=== PATIENT | female | born 1955 | race Caucasian/White ===

== ENCOUNTER → 2016-09-26 | Outpatient (CLI) | payer OTHER ==
--- NOTE | 2016-09-27 08:57 | MM ---
Reason for exam: screening (asymptomatic). Last mammogram was performed 1 year and 1 month ago. History: Patient is postmenopausal. Family history of breast cancer in mother at age 70. Physical Findings: A clinical breast exam by your physician is recommended on an annual basis and results should be correlated with mammographic findings. MG Screening Mammo w CAD Bilateral CC and MLO view(s) were taken. Prior study comparison: September 11, 2015, bilateral MG screening mammo w CAD. December 04, 2012, bilateral digital screening mammo w/CAD. November 21, 2011, bilateral digital screening mammo w/CAD. There are scattered fibroglandular densities. Some of the nodularity previously seen in the left breast has resolved. There is some new 5mm and smaller nodularity in the upper outer quadrant right breast. A benign etiology is suspected. A 6 month follow up is recommended. ASSESSMENT: Probably benign, BI-RAD 3 RECOMMENDATION: Follow-up diagnostic mammogram of the right breast in 6 months.
== END | disposition home or self-care (01) ==
LOC: RADMAMWWP 13:37
PROVIDERS: ATTEND Family Medicine
DX: Z12.31 Encounter for screening mammogram for malignant neoplasm of breast (principal)

== ENCOUNTER 2016-12-27 09:15 | Day surgery (SDC) | payer OTHER ==
[2016-12-23 16:40] VITALS: BMI 27.4
[~2016-12-27 09:15] MED LIST: LACTATED RINGERS 1,000 ML IV SCH
[2016-12-27 10:32] VITALS: RESP 18; TEMP 98.1
[2016-12-27] MEDS ORDERED: LIDOCAINE 1% 20 ML VIAL (10MG/ML) FOR IV START INTRADERMA ONE (10:32)
[2016-12-27] MEDS ORDERED: PROPOFOL 10 MG/ML 20 ML VIAL IV ONE (11:02)
[2016-12-27] MEDS ORDERED: MIDAZOLAM 2 MG/2 ML VIAL ONE (11:02)
[2016-12-27] MEDS ORDERED: LIDOCAINE 1% INJ 10MG/ML (20 ML MDV) ONE (11:02)
[2016-12-27 11:44] VITALS: PULSE 65
--- NOTE | 2016-12-27 11:49 | P.PCN ---
Date of Procedure: 12/27/16 Procedure(s) Performed: Procedure: Total colonoscopy. Preoperative diagnosis: Screening for neoplasia, patient has history of polyps. Postoperative diagnosis: Sigmoid diverticulosis with no evidence of acute diverticulitis, strictures, polyps or cancer. Preparation: HalfLytely prep. Sedation: Was provided by anesthesia. Brief clinical history: The patient is 61-year-old female who is scheduled for this evaluation for screening for neoplasia, age being her risk factor as well as history of polyps. Her last exam was around 5 years ago. At this time, she has no abdominal complaints, bleeding or anemia. Procedure: With the patient on her left lateral decubitus position and after informed consent and adequate sedation, the perianal area was inspected and it did not show any fissures or fistulas. There were no masses felt on digital rectal examination. The Olympus CFQ 160L video colonoscope was then inserted in the rectum in the usual fashion and advanced to the cecum. There were few diverticular orifices seen scattered in the sigmoid with no evidence of acute diverticulitis or strictures. No polyps or tumors were seen. I retroflexed the endoscope in the rectum before the endoscope was withdrawn. The patient tolerated the procedure well. Plan: The patient was reassured. She will follow-up with you as planned and I recommended repeat exam in 5 years.
[2016-12-27 12:06] VITALS: BP 143/65
== END 2016-12-27 12:21 | disposition home or self-care (01) ==
LOC: ORWHC2ENDO 09:15
DX: Z12.11 Encounter for screening for malignant neoplasm of colon (principal); Z86.010 Personal history of colon polyps; K57.30 Diverticulosis of large intestine without perforation or abscess without bleeding; Z88.0 Allergy status to penicillin; Z88.2 Allergy status to sulfonamides; K21.9 Gastro-esophageal reflux disease without esophagitis; I10 Essential (primary) hypertension; E07.9 Disorder of thyroid, unspecified; Z79.899 Other long term (current) drug therapy
CPT/HCPCS: J2250; J2001; J2704; G0105

== ENCOUNTER → 2017-04-19 | Outpatient (CLI) | payer OTHER ==
--- NOTE | 2017-04-19 14:47 | MM ---
Reason for exam: follow-up at short interval from prior study. Last mammogram was performed 7 months ago. History: Patient is postmenopausal. Family history of breast cancer in mother at age 70. Physical Findings: Nurse did not find any significant physical abnormalities on exam. MG Diagnostic Mammo RT w CAD CC and MLO view(s) were taken of the right breast. Prior study comparison: September 26, 2016, bilateral MG screening mammo w CAD. September 11, 2015, bilateral MG screening mammo w CAD. There are scattered fibroglandular densities. There are oval circumscribed low density masses in the upper outer quadrant of the right breast at middle depth less conspicuous on today's exam. These results were verbally communicated with the patient and result sheet given to the patient on 04/19/17. ASSESSMENT: Probably benign, BI-RAD 3 RECOMMENDATION: Follow-up diagnostic mammogram of both breasts in 6 months.
== END | disposition home or self-care (01) ==
LOC: RADMAMWWP 12:44
PROVIDERS: ATTEND Family Medicine
DX: R92.8 Other abnormal and inconclusive findings on diagnostic imaging of breast (principal)
CPT/HCPCS: 77065

== ENCOUNTER → 2017-05-23 | Outpatient (CLI) | payer OTHER ==
[2017-05-23 11:06] LABS: HCT 38.8 % (34.0-46.0); HGB 11.4 gm/dL (11.4-16.0); Hypochromasia Marked; MCH 25.5 pg (25.0-35.0); MCHC 29.3 g/dL (31.0-37.0); Platelet Count 223 k/uL (150-450); RBC 4.46 m/uL (3.80-5.40); WBC 10.9 k/uL (3.8-10.6)
[2017-05-23 12:14] LABS: Basophils # (M) 0.11 k/uL (0-0.2); Eosinophils # (M) 0.11 k/uL (0-0.7); Monocytes # (M) 0.87 k/uL (0-1.0); Neutrophils # (M) 7.41 k/uL (1.3-7.7); Neutrophils % (M) 68 %; Nucleated Red Blood Cells 0 /100 WBC (0-0); Total Cells Counted 100
[2017-05-23 12:16] LABS: Anisocytosis (M) Present; Poikilocytosis (M) Present
== END | disposition home or self-care (01) ==
LOC: LABWHC1 10:32
PROVIDERS: ATTEND Family Medicine
DX: D72.819 Decreased white blood cell count, unspecified (principal)
CPT/HCPCS: 36415; 85027

== ENCOUNTER → 2017-10-09 | Outpatient (CLI) | payer OTHER ==
[2017-10-09 11:47] LABS: Anisocytosis Slight; HCT 40.1 % (34.0-46.0); MCH 27.4 pg (25.0-35.0); MCHC 32.3 g/dL (31.0-37.0); MCV 84.8 fL (80.0-100.0); Mean Platelet Volume 8.3; Platelet Count 218 k/uL (150-450); RBC 4.73 m/uL (3.80-5.40); RDW 16.5 % (11.5-15.5); WBC 14.3 k/uL (3.8-10.6)
[2017-10-09 12:03] LABS: ALT 45 U/L (9-52); AST 36 U/L (14-36); Albumin 4.2 g/dL (3.5-5.0); Alkaline Phosphatase 91 U/L (38-126); Anion Gap 12 mmol/L; Blood Urea Nitrogen 18 mg/dL (7-17); Carbon Dioxide 28 mmol/L (22-30); Chloride 102 mmol/L (98-107); Cholesterol 175 mg/dL (<200); Glucose 90 mg/dL (74-99); HDL Cholesterol 45 mg/dL (40-60); LDL Cholesterol,Calculated 56 mg/dL (0-99); Potassium 4.9 mmol/L (3.5-5.1); Sodium 142 mmol/L (137-145); Total Bilirubin 0.3 mg/dL (0.2-1.3); Total Protein 6.9 g/dL (6.3-8.2); Triglycerides 372 mg/dL (<150)
== END | disposition home or self-care (01) ==
LOC: LABWHC1 10:29
PROVIDERS: ATTEND Family Medicine
DX: D50.9 Iron deficiency anemia, unspecified (principal)
CPT/HCPCS: 36415; 80053; 80061; 82728; 84443; 84481; 85027

== ENCOUNTER → 2017-10-26 | Outpatient (CLI) | payer OTHER ==
--- NOTE | 2017-10-26 14:23 | MM ---
Reason for exam: follow-up at short interval from prior study. Last mammogram was performed 6 months ago. History: Patient is postmenopausal. Family history of breast cancer in mother at age 70. Physical Findings: Nurse did not find any significant physical abnormalities on exam. MG Diagnostic Mammo w CAD ARDEN Bilateral CC and MLO view(s) were taken. Prior study comparison: April 19, 2017, right breast MG diagnostic mammo RT w CAD. September 26, 2016, bilateral MG screening mammo w CAD. There are scattered fibroglandular densities. Benign calcifications. No discrete abnormality. No significant new findings when compared with previous films. These results were verbally communicated with the patient and result sheet given to the patient on 10/26/17. ASSESSMENT: Benign, BI-RAD 2 RECOMMENDATION: Routine screening mammogram of both breasts in 1 year.
== END | disposition home or self-care (01) ==
LOC: RADMAMWWP 13:22
PROVIDERS: ATTEND Family Medicine
DX: R92.8 Other abnormal and inconclusive findings on diagnostic imaging of breast (principal)
CPT/HCPCS: 77066

== ENCOUNTER → 2019-01-28 | Outpatient (CLI) | payer OTHER ==
--- NOTE | 2019-01-30 09:10 | MM ---
Reason for exam: screening (asymptomatic). Last mammogram was performed 4 months ago. History: Patient is postmenopausal. Family history of breast cancer in mother at age 70. Physical Findings: A clinical breast exam by your physician is recommended on an annual basis and results should be correlated with mammographic findings. MG Screening Mammo w CAD Bilateral CC and MLO view(s) were taken. Prior study comparison: September 20, 2018, left breast MG diagnostic mammo LT w CAD. October 26, 2017, bilateral MG diagnostic mammo w CAD ARDEN. There are scattered fibroglandular densities. There is chronic nodularity in the left breast. No significant changes when compared with prior studies. ASSESSMENT: Negative, BI-RAD 1 RECOMMENDATION: Routine screening mammogram of both breasts in 1 year.
== END | disposition home or self-care (01) ==
LOC: RADMAMWWP 12:56
PROVIDERS: ATTEND Family Medicine
DX: Z12.31 Encounter for screening mammogram for malignant neoplasm of breast (principal)
CPT/HCPCS: 77067

== ENCOUNTER → 2019-02-11 | Day surgery (SDC) | payer OTHER ==
[2019-02-07 10:14] VITALS: BMI 26.4
[~2019-02-11] MED LIST changes: +GLUCAGON 1 MG/ML VIAL ONE; +LIDOCAINE 1% 20 ML VIAL (10MG/ML) FOR IV START INTRADERMA PRN; +ONDANSETRON 4 MG/2 ML VIAL IVP ONE; +PROPOFOL 10 MG/ML 20 ML VIAL IV ONE; +SCOPOLAMINE 1.5MG/72HR PATCH TRANSDERM ONE
[2019-02-11 08:04] VITALS: RESP 16; TEMP 98.6
--- NOTE | 2019-02-11 08:40 | P.GSHP ---
History of Present Illness H&P Date: 02/11/19 Chief Complaint: History of colon polyps This is a 64-year-old female who presents today for colonoscopy. Patient has previous history of colon polyps. Her last colonoscopy was approximately 5 years ago. Past Medical History Past Medical History: GERD/Reflux, Hypertension, Thyroid Disorder Additional Past Medical History / Comment(s): vertigo, HX of polyps. History of Any Multi-Drug Resistant Organisms: None Reported Past Surgical History: Joint Replacement, Orthopedic Surgery Additional Past Surgical History / Comment(s): RIGHT ANKLE SX AND HARDWARE REMOVED. left TOTAL KNEE, left TOTAL HIP . Past Anesthesia/Blood Transfusion Reactions: Motion Sickness, Postoperative Nausea & Vomiting (PONV) Smoking Status: Never smoker - Past Family History Mother Family Medical History: Cancer Additional Family Medical History / Comment(s): BREAST CANCER Medications and Allergies Home Medications Medication Instructions Recorded Confirmed Type Aspirin 81 mg PO HS 05/19/14 02/07/19 History Ergocalciferol (Vitamin D2) 50,000 unit PO FR 12/23/16 02/07/19 History [Vitamin D2] Levothyroxine Sodium [Synthroid] 50 mcg PO HS 12/23/16 02/07/19 History Omeprazole [PriLOSEC] 20 mg PO BID 12/23/16 02/07/19 History Raloxifene [Evista] 60 mg PO HS 12/23/16 02/07/19 History Simvastatin [Zocor] 40 mg PO HS 12/23/16 02/07/19 History amLODIPine [Norvasc] 10 mg PO HS 02/07/19 02/07/19 History buPROPion HCL [Wellbutrin XL] 150 mg PO HS 02/07/19 02/07/19 History Allergies Allergy/AdvReac Type Severity Reaction Status Date / Time Sulfa (Sulfonamide Allergy Unknown Rash/Hives- Verified 02/11/19 07:52 Antibiotics) pt unsure if penicillin or sulfa allergy. Penicillins Allergy Rash/Hives Verified 02/11/19 07:52 Surgical - Exam Vital Signs Temp Pulse Resp BP Pulse Ox 98.6 F 88 16 141/65 97 02/11/19 07:59 02/11/19 07:59 02/11/19 07:59 02/11/19 07:59 02/11/19 07:59 - General no distress - Eyes PERRL - ENT normal pinna - Neck no masses - Respiratory normal expansion - Cardiovascular Rhythm: regular - Abdomen Abdomen: soft, non tender Assessment and Plan Assessment: History of colon polyps. We'll perform colonoscopy.
--- NOTE | 2019-02-11 09:06 | P.OP ---
Date of Procedure: 02/11/19 Preoperative Diagnosis: History of colon polyps Postoperative Diagnosis: Diverticulosis Colonoscopy completed to splenic flexure. Tortuous bowel Procedure(s) Performed: Colonoscopy Anesthesia: MAC Surgeon: Efren Licea Pathology: none sent Condition: stable Disposition: PACU Description of Procedure: The patient's placed on the endoscopy table in the lateral position. She received IV sedation. Digital rectal exam was performed which revealed no rales. The flexible colonoscope was then placed patient anus and passed throughout the colon. The scope could not pass beyond the splenic flexure secondary to tortuosity bowel. The colonoscope was then exchanged for a pediatric colonoscope and the colonoscope could not be advanced beyond the splenic flexure secondary to tortuosity. At this point scope was withdrawn. In the descending; there is extensive diverticular changes. There is known to any colon polyps. The scope was brought back the rectum and this appeared normal. Scope withdrawn for patient.
[2019-02-11 11:32] VITALS: BP 124/67; PULSE 84
--- NOTE | 2019-02-11 13:36 | FL ---
EXAMINATION TYPE: FL barium enema w air contrast DATE OF EXAM: 02/11/2019 COMPARISON: NONE HISTORY: Change in bowel habits. TECHNIQUE: Barium and air were instilled into the colon from the rectum to the cecum. Multiple spot and overhead images are obtained. Scattered retained fecal debris within the left hemicolon limits e valuation somewhat. FINDINGS: I do not see evidence for annular constricting lesion or fungating mass. No polypoid lesio ns are identified. Mucosal fold pattern has a normal appearance. No evidence for inflammatory bowel disease. Normal-appearing appendix which is retrocecal. Mild sigmoid diverticulosis. No evidence fo r diverticulitis. IMPRESSION: No significant abnormality identified at this time. Symptoms persist consider direct vis ualization.
== END ==
LOC: ORWHC2ENDO 07:35
PROVIDERS: ATTEND Surgery
DX: K57.30 Diverticulosis of large intestine without perforation or abscess without bleeding (principal); Q43.8 Other specified congenital malformations of intestine; Z86.010 Personal history of colon polyps; K21.9 Gastro-esophageal reflux disease without esophagitis; I10 Essential (primary) hypertension; E07.9 Disorder of thyroid, unspecified; E78.5 Hyperlipidemia, unspecified; Z86.69 Personal history of other diseases of the nervous system and sense organs; Z96.652 Presence of left artificial knee joint; Z96.642 Presence of left artificial hip joint; Z98.890 Other specified postprocedural states; Z87.898 Personal history of other specified conditions; Z79.82 Long term (current) use of aspirin; Z79.890 Hormone replacement therapy; Z79.899 Other long term (current) drug therapy; Z88.2 Allergy status to sulfonamides; Z88.0 Allergy status to penicillin; Z80.3 Family history of malignant neoplasm of breast
CPT/HCPCS: 74280; J1610; J2405; J2704; G0104; 45378

== ENCOUNTER → 2020-02-07 | Outpatient (CLI) | payer MEDICARE, OTHER ==
--- NOTE | 2020-02-10 12:05 | MM ---
Reason for exam: screening (asymptomatic). Last mammogram was performed 1 year ago. History: Patient is postmenopausal. Family history of breast cancer in mother at age 70. Physical Findings: A clinical breast exam by your physician is recommended on an annual basis and results should be correlated with mammographic findings. MG Screening Mammo w CAD Bilateral CC and MLO view(s) were taken. Prior study comparison: January 28, 2019, bilateral MG screening mammo w CAD. September 20, 2018, left breast MG diagnostic mammo LT w CAD. There are scattered fibroglandular densities. There are benign appearing round calcifications bilaterally. There is chronic nodularity bilaterally. There is no discrete abnormality. ASSESSMENT: Benign, BI-RAD 2 RECOMMENDATION: Routine screening mammogram of both breasts in 1 year.
== END | disposition home or self-care (01) ==
LOC: RADMAMWWP 12:29
PROVIDERS: ATTEND Family Medicine
DX: Z12.31 Encounter for screening mammogram for malignant neoplasm of breast (principal)
CPT/HCPCS: 77067

== ENCOUNTER 2021-01-22 05:50 | Day surgery (SDC) | payer MEDICARE, OTHER ==
[2021-01-19 08:47] VITALS: BMI 28.3
[~2021-01-22 05:50] MED LIST changes: -GLUCAGON 1 MG/ML VIAL ONE; -LACTATED RINGERS 1,000 ML IV SCH; -LIDOCAINE 1% 20 ML VIAL (10MG/ML) FOR IV START INTRADERMA PRN; -ONDANSETRON 4 MG/2 ML VIAL IVP ONE; -PROPOFOL 10 MG/ML 20 ML VIAL IV ONE; +Pre Op ABX Message 1 EACH MISC MISCELLANE ONE; -SCOPOLAMINE 1.5MG/72HR PATCH TRANSDERM ONE
[2021-01-22] MEDS ORDERED: ONDANSETRON 4 MG/2 ML VIAL IVP ONE ×2 (05:52→10:07)
[2021-01-22] MEDS ORDERED: MIDAZOLAM 2 MG/2 ML VIAL IV PRN (05:52)
[2021-01-22] MEDS ORDERED: HYDROmorphone 0.5 MG/0.5 ML SYRINGE IVP PRN (05:52)
[2021-01-22] MEDS ORDERED: DEXAMETHASONE SOD PHOSPHATE 4 MG/ML 1 ML VIAL IV ONE (05:52)
[2021-01-22] MEDS ORDERED: LACTATED RINGERS 1,000 ML IV SCH (05:52)
[2021-01-22] MEDS ORDERED: PROPOFOL 10 MG/ML 20 ML VIAL IV ONE (07:38)
[2021-01-22] MEDS ORDERED: KETAMINE 10 MG/ML 20 ML VIAL ONE (07:38)
[2021-01-22] MEDS ORDERED: LIDOCAINE 1% INJ 10MG/ML (20 ML MDV) ONE (07:38)
[2021-01-22] MEDS ORDERED: MIDAZOLAM 2 MG/2 ML VIAL ONE (07:38)
[2021-01-22] MEDS ORDERED: fentaNYL (PF) 50 MCG/ML 2 ML AMP ONE (07:38)
[2021-01-22] MEDS ORDERED: SUCCINYLCHOLINE CHLORIDE 100 MG/5 ML SYR IV ONE (07:38)
[2021-01-22] MEDS ORDERED: SODIUM CHLORIDE 0.9% 100 ML with CLINDAMYCIN 600 MG IV ONE ×2 (07:59)
[2021-01-22] MEDS ORDERED: BUPIVACAINE (PF) 0.5% 30 ML VIAL SQ ONE (08:00)
[2021-01-22 09:28] VITALS: RESP 16; TEMP 98.1
--- NOTE | 2021-01-22 09:43 | P.OP ---
Date of Procedure: 01/22/21 Preoperative Diagnosis: Hallux valgus left foot Postoperative Diagnosis: Same Procedure(s) Performed: Modified Lapidus bunionectomy left foot Implants: Lapiplasty system plates and screws Anesthesia: SAHIL Surgeon: Jonah Campbell Estimated Blood Loss (ml): 5 Pathology: none sent Condition: stable Disposition: PACU Indications for Procedure: Painful hallux valgus deformity nonresponsive to conservative treatment Description of Procedure: The patient was brought into the operating room and placed on table supine position. Timeout was taken to confirm correct patient identifiers, correct procedure, and correct site of surgery. On all staff in the room were in agreement, the patient was induced and placed under general anesthesia. A well- padded tourniquet was placed on the left ankle. 20 mL of 0.25% Marcaine was injected as a left ankle block. Then the left leg was prepped and draped in usual manner. The leg was exsanguinated with a Esmarch bandage and the tourniquet inflated to 250 mmHg. Attention was first directed over the medial aspect of the first metatarsal phalangeal joint. A linear incision was made between the neurovascular structures and deepened down through the subcutaneous layer careful to identify, avoid, and retract any neurovascular structures and cauterize any bleeding vessels. Dissection was continued down to the joint capsule. 2 semi-elliptical converging incisions were made on the medial aspect of the capsule. The interposing piece of tissue was removed which would facilitate sesamoid correction upon closure. The capsule was then reflected off the medial aspect of the first metatarsal head. The sesamoid apparatus was distracted plantarly and a lateral release completed. Then attention was directed over the dorsal aspect of the foot where an incision was made over the first tarsometatarsal joint and medial to the extensor hallucis longus tendon. The incision was deepened down to the subcutaneous tissue careful to identify, avoid, and retract any neurovascular structures and cauterize any bleeding vessels. The capsule was then incised medial to the extensor hallucis longus tendon and then subperiosteal dissection was performed to expose the first tarsometatarsal joint. An osteotome was inserted to free any soft tissue attachments. A pin was then placed on the medial aspect of the base of the first metatarsal which was used to rotate the first metatarsal for frontal plane correction. There was adequate enough motion that planing the joint with the saw blade was not necessary. The fulcrum/joint seeker was inserted into the first tarsometatarsal joint with a fulcrum oriented laterally at the base of the first metatarsal. The cut guide was placed over the seeker and then was utilized as a reference point to make a small incision approximately 3-4 mm distal to the tip of the cut guide on the lateral aspect of the second metatarsal. The incision was made and bluntly dissected down the lateral side of second metatarsal. The reduction clamp was then placed through the incision on the lateral side of second metatarsal and the other portion on the medial aspect of the base of the first metatarsal this is then closed to reduce the intermetatarsal angle while simultaneously holding the first metatarsal derotated utilizing the previously inserted pin. Once adequate correction was achieved which was confirmed under fluoroscopy a pin was placed through the reduction clamp through the first metatarsal into the second metatarsal to maintain the position. The cut guide was aligned under fluoroscopy and then pins placed in the cut guide to hold it in place. Was also confirmed that the cut guide was lying flat on the bony surfaces. A sagittal saw was then inserted into the cut guide and the articular surfaces of the base of the first metatarsal distal medial cuneiform were cut utilizing the sagittal saw. The locking pin holding the cut guide was removed and then the cut guide was slid off the remaining 2 pins. Then the distractor/compressor was placed over the pins. The wire through the reduction clamp was removed as was the reduction clamp and joint seeker. Then the arthrodesis site was distracted and then the cut bony fragments were removed. Once all fragments were removed the area was thoroughly irrigated with saline. And then a 20 drill bit was utilized to fenestrate the conjoining surfaces of the arthrodesis. A smaller fulcrum was then placed on the lateral aspect of the base of the first metatarsal and then the arthrodesis site was compressed while holding the first MPJ dorsiflexed. Once decompression was completed fluoroscopy was used to check the overall alignment as well as the bony contact. Both on AP and lateral views there was good bony contact throughout with no plantar gapping in the intermetatarsal angle correction was maintained. A threaded olive wire was then placed across the arthrodesis site for fixation. The first plate was placed medially across the arthrodesis site. It was adjusted under fluoroscopy and then temporarily fixated in place. The 2 screws closest to the arthrodesis site were inserted through the plate first and then the for this proximal distal were second. Then the distractor/compressor was removed as well as the pins it was attached to. The dorsal plate was then aligned under fluoroscopy and temporarily fixated. Once alignment was adequate the drill holes closest to the arthrodesis site were made and then screws inserted through the plate. And then the most distal and proximal screws were inserted. The fulcrum was removed as was the threaded olive wire and then final fluoroscopic imaging showed complete correction of the intermetatarsal angle with maintained bony contact. A sagittal saw was then used to resect excessive growth on the medial aspect of the first metatarsal head and all the roughened edges were then smoothed. All wounds were thoroughly irrigated with normal saline. Capsular closure of the first MPJ was done with 0 Vicryl while holding the great toenail correct position. Deep closure was also done with 0 Vicryl in the proximal incision. Subcutaneous closure of all incisions was done with 4-0 Monocryl. Skin closure on the medial and dorsal incisions were completed wtih 4-0 Stratafix in a running subcuticular manner. Dermal glue was applied over all the incisions and then covered Steri-Strips. An Arthrex jumpstart dressing was applied over the incisions and then a dry dressing applied to left foot. The tourniquet was released and capillary refill return to all digits on the left foot. The patient was then placed in a well-padded well molded plaster posterior mold/sugar tong splint. Splint was held at 90 while drying. Anesthesia was reversed and the patient was taken recovery with vital signs stable.
[2021-01-22] MEDS ORDERED: ONDANSETRON 4 MG/2 ML VIAL ONE (10:06)
[2021-01-22] MEDS ORDERED: LACTATED RINGERS 1,000 ML IV ONE (10:22)
[2021-01-22 10:55] VITALS: PULSE 94
[2021-01-22 11:09] VITALS: BP 130/77
== END 2021-01-22 11:34 | disposition home or self-care (01) ==
LOC: OR 05:50
PROVIDERS: ATTEND Podiatrist
DX: M20.12 Hallux valgus (acquired), left foot (principal)
CPT/HCPCS: 28297; 20680; 11730; C1713; J2250; J1100; J2405; J2001; J3010; J0330; J2704

== ENCOUNTER → 2021-05-20 | Outpatient (CLI) | payer MEDICARE, OTHER ==
--- NOTE | 2021-05-21 13:32 | MM ---
Reason for exam: screening (asymptomatic). Last mammogram was performed 1 year and 3 months ago. History: Patient is postmenopausal. Family history of breast cancer in mother at age 70. Physical Findings: A clinical breast exam by your physician is recommended on an annual basis and results should be correlated with mammographic findings. MG Screening Mammo w CAD Bilateral CC and MLO view(s) were taken. Prior study comparison: February 07, 2020, bilateral MG screening mammo w CAD. January 28, 2019, bilateral MG screening mammo w CAD. There are scattered fibroglandular densities. There is no discrete abnormality. No significant changes when compared with prior studies. ASSESSMENT: Negative, BI-RAD 1 RECOMMENDATION: Routine screening mammogram of both breasts in 1 year.
== END | disposition home or self-care (01) ==
LOC: RADMAMWWP 13:53
PROVIDERS: ATTEND Family Medicine
DX: Z12.31 Encounter for screening mammogram for malignant neoplasm of breast (principal); Z78.0 Asymptomatic menopausal state; Z80.3 Family history of malignant neoplasm of breast
CPT/HCPCS: 77067

== ENCOUNTER → 2022-03-18 | Outpatient (CLI) | payer MEDICARE, OTHER ==
--- NOTE | 2022-03-18 10:06 | FL ---
EXAMINATION TYPE: FL barium swallow DATE OF EXAM: 03/18/2022 CLINICAL HISTORY: Dysphagia. Some choking episodes. No relief with Prilosec. TECHNIQUE: A double contrast esophagram is performed utilizing air and barium. A total of 39 second s of fluoroscopic time was utilized during procedure and 68 images obtained COMPARISON: None FINDINGS: The esophagus shows some underlying dysmotility with moderate dilatation of the distal esop hagus. No proximal diverticulum. No aspiration during real-time performance. There is small to modera te size sliding-type hiatal hernia. There is focal [id number] narrowing at level of the diaphra gmatic hiatus. No significant gastroesophageal reflux was seen during real time performance of this s tudy. IMPRESSION: Small to moderate-sized sliding-type hiatal hernia. Mild esophageal dysmotility. Focal na rrowing at the diaphragmatic hiatus causing distal esophageal dilatation.
== END | disposition home or self-care (01) ==
LOC: RADUSWWP 08:40
PROVIDERS: ATTEND Family Medicine
DX: K44.9 Diaphragmatic hernia without obstruction or gangrene (principal); K22.4 Dyskinesia of esophagus; K22.89 Other specified disease of esophagus
CPT/HCPCS: 74220

== ENCOUNTER → 2022-06-29 | Outpatient (CLI) | payer MEDICARE, OTHER ==
--- NOTE | 2022-06-30 10:38 | MM ---
Reason for Exam: Screening (asymptomatic). Last mammogram was performed 1 year(s) and 1 month(s) ago. Patient History: Menarche at age 13. First Full-Term at age 26. Postmenopausal. Mother had breast cancer, age 70. Risk Values: Marian 5 year model risk: 3.3%. Prior Study Comparison: 01/28/2019 Bilateral Screening Mammogram, [facility]. 02/07/2020 Bilateral Screening Mammogram, [facility]. 05/20/2021 Bilateral Screening Mammogram, [facility]. Tissue Density: The breast tissue is almost entirely fat. Findings: Analyzed By CAD. Benign spherical calcifications are present bilaterally. Chronic nodularity is within the left breast. No significant interval changes are evident. No suspicious groups of microcalcifications, spiculated or lobular masses, architectural distortion or other secondary signs of malignancy are mammographically apparent. Overall Assessment: Benign, BI-RAD 2 Management: Screening Mammogram of both breasts in 1 year. A negative mammogram report should not preclude additional follow up of suspicious palpable abnormalities. Patient should continue monthly self breast exam. A clinical breast exam by your physician is recommended on an annual basis and results should be correlated with mammographic findings. Electronically signed and approved by: Twin Braun D.O. Radiologis
== END | disposition home or self-care (01) ==
LOC: RADMAMWWP 14:53
PROVIDERS: ATTEND Family Medicine
DX: Z12.31 Encounter for screening mammogram for malignant neoplasm of breast (principal); Z78.0 Asymptomatic menopausal state; Z80.3 Family history of malignant neoplasm of breast
CPT/HCPCS: 77067

== ENCOUNTER → 2023-06-15 | Outpatient (CLI) | payer MEDICARE, OTHER ==
[2023-06-15 18:06] LABS: HCT 37.7 % (37.2-46.3); HGB 11.6 g/dL (12.0-15.0); MCHC 30.8 g/dL (32.0-37.0); MCV 87.9 FL (80.0-97.0); Mean Platelet Volume 12.4 FL (9.5-12.2); NRBC Per 100 WBC 0 X 10*3/uL (0.00-0.01); Platelet Count 286 X 10*3/uL (140-440); RBC 4.29 X 10*6/uL (4.10-5.20); RDW 15.3 % (11.5-14.5); WBC 10.04 X 10*3/uL (4.50-10.00)
[2023-06-15 20:58] LABS: T4, Free (Free Thyroxine) 1.23 ng/dL (0.80-1.80)
[2023-06-15 21:22] LABS: Chol/HDL Ratio 7.88 Ratio
[2023-06-15 21:27] LABS: ALT 24 U/L (8-44); AST 31 U/L (13-35); Albumin 4.6 g/dL (3.8-4.9); Albumin/Globulin Ratio 1.53 Ratio (1.60-3.17); Alkaline Phosphatase 109 U/L (41-126); BUN/Creat Ratio 46.57 Ratio (12.00-20.00); Blood Urea Nitrogen 32.6 mg/dL (9.0-27.0); Calcium 9.3 mg/dL (8.7-10.3); Carbon Dioxide 22.7 mmol/L (21.6-31.8); Chloride 98 mmol/L (96-109); Glucose 111 mg/dL (70-110); Potassium 4.8 mmol/L (3.5-5.5); Sodium 137 mmol/L (135-145); Total Bilirubin <0.2 mg/dL (0.3-1.2); Total Protein 7.6 g/dL (6.2-8.2)
== END | disposition home or self-care (01) ==
LOC: LABWHC1 12:48
PROVIDERS: ATTEND Family Medicine
DX: E03.9 Hypothyroidism, unspecified (principal); F33.1 Major depressive disorder, recurrent, moderate; R73.03 Prediabetes
CPT/HCPCS: 36415; 80053; 80061; 83721; 84439; 84443; 84480; 85027

== ENCOUNTER → 2023-06-26 | Outpatient (CLI) | payer MEDICARE, OTHER ==
--- NOTE | 2023-06-30 09:26 | MM ---
Reason for Exam: Screening (asymptomatic). Last screening mammogram was performed 12 month(s) ago. Patient History: Menarche at age 13. First Full-Term at age 26. Postmenopausal. Estrogen for 10 years from age 40 until age 50. Mother had breast cancer, age 70. Risk Values: Marian 5 year model risk: 3.4%. NCI Lifetime model risk: 10.7%. Prior Study Comparison: 02/07/2020 Bilateral Screening Mammogram, [facility]. 05/20/2021 Bilateral Screening Mammogram, [facility]. 06/29/2022 Bilateral MG screening mammo w CAD, [facility]. Tissue Density: There are scattered areas of fibroglandular density. Findings: Analyzed By CAD. There is no suspicious group of microcalcifications or new suspicious mass in either breast. Benign-appearing calcifications. Stable well-circumscribed 2 mm bilateral chronic nodularity. Overall Assessment: Benign, BI-RAD 2 Management: Screening Mammogram of both breasts in 1 year. . Patient should continue monthly self-breast exams. A clinical breast exam by your physician is recommended on an annual basis. This exam should not preclude additional follow-up of suspicious palpable abnormalities. Note on Marian scores and lifetime risk: 1. A Marian score greater than 3% is considered moderate risk. If this is the case, consider specialist referral to assess eligibility for a risk reducing agent. 2. If overall lifetime risk for the development of breast cancer is 20% or higher, the patient may qualify for future screening with alternating mammogram and breast MRI. Electronically signed and approved by: Fredo Holland M.D. Radiologis
== END | disposition home or self-care (01) ==
LOC: RADMAMWWP 13:51
PROVIDERS: ATTEND Family Medicine
DX: Z12.31 Encounter for screening mammogram for malignant neoplasm of breast (principal); Z78.0 Asymptomatic menopausal state; Z80.3 Family history of malignant neoplasm of breast
CPT/HCPCS: 77067

== ENCOUNTER → 2024-04-15 | Day surgery (SDC) | payer MEDICARE, OTHER ==
[~2024-04-15] MED LIST changes: +LACTATED RINGERS 1,000 ML IV SCH; +LIDOCAINE 1% (10MG/ML) FOR IV START INTRADERMA PRN; +PROPOFOL 10 MG/ML 20 ML VIAL IV ONE; -Pre Op ABX Message 1 EACH MISC MISCELLANE ONE
[2024-04-15 12:57] VITALS: TEMP 98.5
[2024-04-15] MEDS: SODIUM CHLORIDE 0.9% 1,000 ML IV ONE (13:01)
--- NOTE | 2024-04-15 13:44 | P.GSHP ---
History of Present Illness H&P Date: 04/15/24 Chief Complaint: Screening colonoscopy This a 69-year-old female who presents today for screening colonoscopy. Patient denies any significant GI complaints. Past Medical History Past Medical History: GERD/Reflux, Hypertension, Thyroid Disorder Additional Past Medical History / Comment(s): vertigo, hypothyroid, HX of polyps. osteoperosis, History of Any Multi-Drug Resistant Organisms: None Reported Past Surgical History: Joint Replacement, Orthopedic Surgery Additional Past Surgical History / Comment(s): RIGHT ANKLE SURGERY AND HARDWARE REMOVED., TOTAL KNEE, TOTAL HIP fx femur,. Past Anesthesia/Blood Transfusion Reactions: Motion Sickness, Postoperative Nausea & Vomiting (PONV) Smoking Status: Former smoker - Past Family History Mother Family Medical History: Cancer Additional Family Medical History / Comment(s): BREAST CANCER Medications and Allergies Home Medications Medication Instructions Recorded Confirmed Type Aspirin 81 mg PO HS 05/19/14 04/15/24 History Ergocalciferol (Vitamin D2) 50,000 unit PO 12/23/16 04/15/24 History [Vitamin D2] Levothyroxine Sodium [Synthroid] 50 mcg PO HS 12/23/16 04/15/24 History Omeprazole [PriLOSEC] 20 mg PO HS 12/23/16 04/15/24 History Raloxifene [Evista] 60 mg PO HS 12/23/16 04/15/24 History Simvastatin [Zocor] 40 mg PO HS 12/23/16 04/15/24 History amLODIPine [Norvasc] 10 mg PO HS 02/07/19 04/15/24 History Loratadine [Claritin] 10 mg PO DAILY 01/19/21 04/15/24 History Teriparatide [Forteo] 1 injection INJ DIRECTED 04/09/24 04/15/24 History Allergies Allergy/AdvReac Type Severity Reaction Status Date / Time Sulfa (Sulfonamide Allergy Unknown Rash/Hives- Verified 04/15/24 12:46 Antibiotics) pt unsure if penicillin or sulfa allergy. Penicillins Allergy Rash/Hives Verified 04/15/24 12:46 acetaminophen [From Vicodin] AdvReac Nausea & Verified 04/15/24 12:46 Vomiting hydrocodone [From Vicodin] AdvReac Nausea & Verified 04/15/24 12:46 Vomiting Surgical - Exam Vital Signs Temp Pulse Resp BP Pulse Ox 98.5 F 102 H 16 164/70 94 L 04/15/24 12:50 04/15/24 12:50 04/15/24 12:50 04/15/24 12:50 04/15/24 12:50 - General well developed, well nourished, no distress - Eyes PERRL - ENT normal pinna - Neck no masses - Respiratory normal expansion - Cardiovascular Rhythm: regular - Abdomen Abdomen: soft, non tender Assessment and Plan Assessment: Will perform screening colonoscopy.
--- NOTE | 2024-04-15 14:07 | P.OP ---
Date of Procedure: 04/15/24 Preoperative Diagnosis: Screening colonoscopy Postoperative Diagnosis: diverticulosis Procedure(s) Performed: Colonoscopy Anesthesia: MAC Surgeon: Efren Licea Pathology: none sent Condition: stable Disposition: PACU Description of Procedure: Patient was placed on the endoscopy table in the lateral position. She received IV sedation. Digital rectal exams performed. This revealed no abnormalities. Close colonoscope was then placed patient anus and passed throughout the colon. The scope could not be advanced through the sigmoid colon at this point scope was withdrawn. And then the pediatric scope was placed. The PA scope was placed patient anus passed throughout the colon. At this point the scope was able to get past the sigmoid colon into the left colon however it could not be advanced secondary tortuosity the bowel. This point scope withdrawn. There is extensive diverticular changes seen in the sigmoid colon. Scope was brought back to the rectum this appeared normal. Scope withdrawn for the patient. Patient was scheduled for a barium enema.
[2024-04-15 14:39] VITALS: BP 131/77; PULSE 89; RESP 20
--- NOTE | 2024-04-16 08:33 | FL ---
EXAMINATION TYPE: FL barium enema DATE OF EXAM: 04/15/2024 COMPARISON: Prior barium enema February 11, 2019 CLINICAL INDICATION: Female, 69 years old with history of Incomplete colonoscopy, no biopsies perform ed; [facility], TECHNIQUE: A double contrast barium enema study is performed. A total of 1 minute 50 seconds of flu oroscopic time was utilized during procedure and 12 images obtained. Total dose area product (DAP) i n uGy*m?, mGy*cm? (or similar): n/a. 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 Metallic hardwa re from left hip surgery is redemonstrated. Exam is noted suboptimal as patient had poor tolerance of contrast and significant pain along with li mited motion for ideal evaluation particularly for nodules. Contrast extends to level of cecum but ce cum is incompletely opacified. No evidence of any large mass, obstructing or constricting lesion thro ughout the colon. No significant diverticular disease is noted. Appendix was not filled. The terminal ileum was not refluxed. IMPRESSION: Suboptimal study without obstructing or constricting mass or neoplasm. [facility], , 04/16/2024 8:31 AM
== END | disposition home or self-care (01) ==
LOC: ORWHC2ENDO 12:25
PROVIDERS: ATTEND Surgery
DX: Z12.11 Encounter for screening for malignant neoplasm of colon (principal); K57.30 Diverticulosis of large intestine without perforation or abscess without bleeding; K63.89 Other specified diseases of intestine; Z86.0100 Personal history of colon polyps, unspecified; K21.9 Gastro-esophageal reflux disease without esophagitis; I10 Essential (primary) hypertension; E03.9 Hypothyroidism, unspecified; M81.0 Age-related osteoporosis without current pathological fracture; R42 Dizziness and giddiness; Z87.891 Personal history of nicotine dependence; Z98.890 Other specified postprocedural states; Z79.899 Other long term (current) drug therapy; Z79.890 Hormone replacement therapy; Z88.0 Allergy status to penicillin; Z88.2 Allergy status to sulfonamides; Z88.5 Allergy status to narcotic agent; Z88.6 Allergy status to analgesic agent
CPT/HCPCS: 74270; J2704; G0121

== ENCOUNTER → 2024-08-05 | Outpatient (CLI) | payer MEDICARE, OTHER ==
--- NOTE | 2024-08-05 12:03 | MM ---
Reason for Exam: Screening (asymptomatic). Last mammogram was performed 1 year(s) and 2 month(s) ago. Patient History: Menarche at age 13. First Full-Term at age 26. Postmenopausal. Estrogen for 10 years from age 40 until age 50. Mother had breast cancer, age 70. Risk Values: Marian 5 year model risk: 3.4%. NCI Lifetime model risk: 10.2%. Prior Study Comparison: 05/20/2021 Bilateral Screening Mammogram, [facility]. 06/29/2022 Bilateral MG screening mammo w CAD, [facility]. 06/26/2023 Bilateral MG screening mammo w CAD, [facility]. Tissue Density: The breasts are almost entirely fatty. Findings: Analyzed By CAD. Right breast: There is no suspicious group of microcalcifications or new suspicious mass. Benign-appearing calcifications right breast. Left breast: There is no suspicious group of microcalcifications or new suspicious mass. Benign-appearing calcifications left breast. Overall Assessment: Benign, BI-RAD 2 Management: Screening Mammogram of both breasts in [address] [facility] will attempt to contact patient to return for supplemental views and ultrasound if indicated. Patient should continue monthly self-breast exams. A clinical breast exam by your physician is recommended on an annual basis. This exam should not preclude additional follow-up of suspicious palpable abnormalities. Note on Marian scores and lifetime risk: 1. A Marian score greater than 3% is considered moderate risk. If this is the case, consider specialist referral to assess eligibility for a risk reducing agent. 2. If overall lifetime risk for the development of breast cancer is 20% or higher, the patient may qualify for future screening with alternating mammogram and breast MRI. [facility], , 08/05/2024 11:59 AM. Electronically signed and approved by: Dread Bray DO
== END | disposition home or self-care (01) ==
LOC: RADMAMWWP 10:46
PROVIDERS: ATTEND Family Medicine
DX: Z12.31 Encounter for screening mammogram for malignant neoplasm of breast (principal); R92.313 Mammographic fatty tissue density, bilateral breasts; Z78.0 Asymptomatic menopausal state; Z80.3 Family history of malignant neoplasm of breast
CPT/HCPCS: 77067